=== PATIENT | female | born 1975 | race Caucasian/White ===

== ENCOUNTER 2016-04-05 14:11 | Emergency (ER) | payer SELFPAY ==
[2016-04-05 14:55] VITALS: BP 120/68
--- NOTE | 2016-04-05 14:56 | ED Physician Documentation ---
General Adult - HISTORIAN Historian: patient - HPI Stated Complaint: High Blood Sugar Chief Complaint: General Adult Additional Information: uncontrolled diabertes found 600 at home, 450 here. asymptomaticc-just out of meds Onset: days ago Timing: still present Severity: mild, moderate - ROS CONST: other (fatigue occasional headache w/ hi bs) EYES/ENT: none CVS/RESP: none GI/: none MS/SKIN/LYMPH: none - PAST HX Past History: other (diabetes fibromyalgia djd) Allergies/Adverse Reactions: Allergies Allergy/AdvReac Type Severity Reaction Status Date / Time carbamazepine [From Tegretol] Allergy Verified 04/05/16 14:22 Home Medications: Ambulatory Orders Medication Instructions Recorded Buspirone HCl [BUSPAR] 5 mg PO 04/05/16 Metformin HCl [Glucophage] 1,[address] [place] [address] #30 tab 04/05/16 Prazosin HCl [Minipress] 1 mg PO 04/05/16 Sertraline HCl [Zoloft] 50 mg PO DAILY 04/05/16 - SOCIAL HX Smoking History: less than 1 pack/day Alcohol Use: none Drug Use: none - FAMILY HX Family History: No - VITAL SIGNS Vital Signs: Vital Signs Temp Pulse Resp BP Pulse Ox 97.1 F L 84 18 132/81 98 04/05/16 14:15 04/05/16 14:15 04/05/16 14:15 04/05/16 14:15 04/05/16 14:15 - REVIEWED ASSESSMENTS Nursing Assessment Reviewed: Yes Vitals Reviewed: Yes General Adult Physical Exam - PHYSICAL EXAM GENERAL APPEARANCE: mild distress EENT: eye inspection normal NECK: normal inspection CVS: reg rate & rhythm, heart sounds normal ABDOMEN: soft, non-tender SKIN: warm/dry, normal color. No: cyanosis, diaphoresis, jaundice EXTREMITIES: non-tender, normal range of motion NEURO: oriented X3, motor nml, sensation nml, mood/affect nml Discharge Clincal Impression: Diabetes mellitus type 1, uncontrolled Prescriptions: Metformin HCl [Glucophage] 1,[place] [address] #30 tab Home Medications: Ambulatory Orders Buspirone HCl [BUSPAR] 5 mg PO 04/05/16 Metformin HCl [Glucophage] 1,[place] [address] #30 tab 04/05/16 Prazosin HCl [Minipress] 1 mg PO 04/05/16 Sertraline HCl [Zoloft] 50 mg PO DAILY 04/05/16 Condition: Good Disposition: 01 HOME, SELF-CARE Decision to Admit: NO Decision Time: 14:59
== END 2016-04-05 14:54 | disposition home or self-care (01) ==
LOC: ED 14:11
DX: E10.65 Type 1 diabetes mellitus with hyperglycemia (principal)
CPT/HCPCS: 99282; 99283